=== PATIENT | female | born 1965 | race Caucasian/White ===

== ENCOUNTER 2018-08-08 19:48 | Emergency (ER) | payer BC ==
[~2018-08-08] VITALS: Ht 152.4 cm; Wt 56.7 kg
[~2018-08-08 19:48] MED LIST: ANAPROX DS550 MG PO; EFFEXOR XR37.5 M1 PO; Orphenadrine C100 MG PO; PERCOCET 325 MG1 TA2 PO; PRILOSEC20 MG PO; PROTONIX40 MG PO; ULTRAM50 MG PO; ZESTRIL20 MG PO
[2018-08-08] MEDS ORDERED: CYCLOBENZAPRINE10 MG PO (22:53)
== END 2018-08-08 22:58 | disposition home or self-care (01) ==
LOC: ED 19:48
DX: M50.322 Other cervical disc degeneration at C5-C6 level (principal); M25.512 Pain in left shoulder; G89.29 Other chronic pain; Z88.0 Allergy status to penicillin; Z79.899 Other long term (current) drug therapy; X50.0XXA Overexertion from strenuous movement or load, initial encounter; Y93.89 Activity, other specified; Y92.89 Other specified places as the place of occurrence of the external cause; Y99.8 Other external cause status

== ENCOUNTER 2018-08-16 20:24 | Emergency (ER) | payer BC ==
[~2018-08-16] VITALS: Ht 152.4 cm; Wt 56.7 kg
--- NOTE | ~2018-08-16 | EKG ---
[place], [place] ELECTROCARDIOGRAM REPORT NAME: LETTY LOVE UNIT #: [id number] ROOM: DOCTOR: EPIPHANY DRAFT REPORT BIRTHDATE: [birth year] [facility] Test Date: 2018-08-16 Test Time: 20:46:51 Pat Name: LETTY LOVE Department: ER Room: 2 Gender: F Application Development Director: ARACELY : 1965 Requested By: CRYS SORTO Order Number: [id number] Reading MD: Angelina Kilpatrick MD Measurements Intervals [place] Rate: 89 P: 71 GA: 136 QRS: 34 QRSD: 84 T: 43 QT: 403 QTc: 491 Interpretive Statements Sinus rhythm Left ventricular hypertrophy Borderline prolonged QT interval Electronically Signed On 08-18-2018 7:36:11 PST by Angelina Kilpatrick MD CM:EKGRPT:ELECTROCARDIOGRAM REPORT [id number] CRYS SORTO MD EPIPHANY DRAFT REPORT CRYS SORTO MD
[~2018-08-16 20:24] MED LIST changes: +CYCLOBENZAPRINE10 MG PO
[2018-08-16 21:08] LABS: BASO % 0.2 % (0.0-1.0); EOS % 0.2 % (1.0-4.0); HEMOGLOBIN 16.9 g/dl (12.0-16.0); LYMPH # 4.2 10*3/uL (1.3-4.4); LYMPH % 32.9 % (27.0-41.0); MEAN CELL VOLUME 100.6 fl (81.0-99.0); MEAN CORPUSCULAR HGB CONC 33.8 g/dl (33.0-37.0); MEAN PLATELET VOLUME 12.2 fl (9.6-12.3); MONO # 0.9 10*3/uL (0.1-1.0); MONO % 6.7 % (3.0-9.0); NEUT # 7.5 10*3/uL (2.3-7.9); NEUT % 59.8 % (47.0-73.0); PLATELET COUNT AUTOMATED 191 10*3/uL (130-400); RED BLOOD COUNT 4.97 10*6/uL (4.10-5.10); RED CELL DISTRI WIDTH 13.1 % (0-14.5); WHITE BLOOD COUNT 12.6 10*3/uL (4.8-10.8)
[2018-08-16 21:16] LABS: ACT PARTIAL THROMBO TIME 26.5 SECONDS (20.8-31.5)
[2018-08-16 21:50] LABS: ALBUMIN 3.6 gm/dl (3.1-4.5); ALKALINE PHOSPHATASE 128 U/L (45-117); BUN 7 mg/dl (7-24); CHLORIDE 103 mmol/L (98-107); CREATININE 0.93 mg/dL (0.55-1.02); LIPASE 180 U/L (73-393); POTASSIUM 3.4 mmol/L (3.5-5.1); SGOT/AST 12 IU/L (3-35); SGPT/ALT 18 U/L (12-78); SODIUM 140 mmol/L (136-145); TOTAL PROTEIN 7.9 gm/dL (6.4-8.2); TROPONIN I < 0.015 ng/ml (<0.045)
[2018-08-16 21:51] LABS: ETHYL ALCOHOL < 3.0 mg/dl (<3)
[2018-08-16 22:07] LABS: BILIRUBIN NEGATIVE (NEGATIVE); BLOOD NEGATIVE (NEGATIVE); CLARITY CLEAR (CLEAR); COLOR YELLOW (YELLOW); GLUCOSE NEGATIVE (NEGATIVE); KETONE NEGATIVE (NEGATIVE); LEUKO ESTERASE NEGATIVE (NEGATIVE); NITRITE NEGATIVE (NEGATIVE); PH 5.5 (5.0-9.0); UROBILINOGEN 0.2 E.U./dl (0.2-1.0)
[2018-08-16 22:08] LABS: RBC 0-2 rbc/hpf (0-2)
[2018-08-16 22:09] LABS: BACTERIA 1+; MUCOUS TRACE
[2018-08-16] MEDS ORDERED: LOPRESSOR25 MG PO (22:24)
[2018-08-16] MEDS ORDERED: Motrin,Rufen800 MG PO (22:24)
== END 2018-08-16 22:35 | disposition home or self-care (01) ==
LOC: ED 20:24
PROVIDERS: Emergency Medicine Emergency Medical Services
DX: S20.212A Contusion of left front wall of thorax, initial encounter (principal); S40.012A Contusion of left shoulder, initial encounter; I16.0 Hypertensive urgency; M54.5 Low back pain; Z88.0 Allergy status to penicillin; Z79.899 Other long term (current) drug therapy; V89.2XXA Person injured in unspecified motor-vehicle accident, traffic, initial encounter; Y93.89 Activity, other specified; Y92.488 Other paved roadways as the place of occurrence of the external cause; Y99.8 Other external cause status

== ENCOUNTER 2019-06-26 21:48 | Emergency (ER) | payer BC ==
[~2019-06-26] VITALS: Ht 152.4 cm; Wt 61.2 kg
[~2019-06-26 21:48] MED LIST changes: +LOPRESSOR25 MG PO; +Motrin,Rufen800 MG PO
[2019-06-27] MEDS ORDERED: NORCO 5-325 TA1 EACH PO (01:20)
[2019-06-27] MEDS ORDERED: PREDNISONE10 MG PO (01:20)
[2019-06-27] MEDS ORDERED: CYCLOBENZAPRINE5 M3 PO (01:20)
== END 2019-06-27 01:51 | disposition home or self-care (01) ==
LOC: ED 21:48
DX: M54.42 Lumbago with sciatica, left side (principal); M51.27 Other intervertebral disc displacement, lumbosacral region; I10 Essential (primary) hypertension; Z88.0 Allergy status to penicillin; Z79.899 Other long term (current) drug therapy